=== PATIENT | male | born 1970 | race Caucasian/White ===

== ENCOUNTER 2023-07-16 08:52 | Emergency (ER) | payer MEDICARE, SELFPAY ==
[2023-07-16 08:54] VITALS: BP 168/95; PULSE 80; RESP 18; TEMP 36.6; O2SAT 93; BMI 20.7
[2023-07-16 09:00] VITALS: BP 168/95; PULSE 78; RESP 20; O2SAT 96
--- NOTE | 2023-07-16 09:09 | PC.NURSE ---
Dr. Charlton at [facility] for pt eval
--- NOTE | 2023-07-16 09:17 | HMH.EDGENADL ---
Discharge Plan Disposition Patient Disposition: Home, Self-Care Referrals Follow up/Referrals: Provider,Referral, [Primary Care Provider] - See instructions Activity Restrictions/Add. Instructions Additional Instructions/Restrictions: Call your family doctor to establish care for this visit to the emergency department and schedule follow-up within 48 hours to ensure improvement. If you have any worsening of your condition or any other concerning signs or symptoms, return to the emergency department or your primary care doctor for further evaluation. Be sure to stay plenty hydrated Clinical Impressions Clinical Impression: Acute dehydration, Generalized weakness Instructions Patient Instructions: DI for Muscle Weakness Discharge ED Provider: Jareth Charlton General Adult HPI General Chief complaint: Weakness Stated complaint: POSSIBLE DEHYDRATION Time Seen by Provider: 07/16/23 08:59 Mode of Arrival: Wheelchair Source of Information: Relative Limitations: No Limitations Description of Symptoms (Recalled from ER Triage Doc. by RN): Relative states the patient has been having difficulty walking for 3 days now. States he is walking slow and having to hold onto things to get around. Relative states that he gets like this when he is dehydrated. History of Present Illness HPI narrative: 52-year-old male with history of seizure disorder presenting with weakness. Patient has had 1 episode like this in the past, it was due to dehydration. Patient has been tolerating p.o. intake, although less in the past couple days. Family, caretakers, stated that whenever he gets dehydrated, he requires more assistance including holding hands and support while walking and transferring. Patient usually independent. For the past couple of days, patient has been increasingly dependent on someone to help him ambulate. Patient denies fevers, chills, shortness of breath, sore throat, nausea vomiting, abdominal pain, chest pain, rash, leg swelling, dysuria, hematuria, constipation or diarrhea, or any other complaints at this time. Related Data Allergies Allergy/AdvReac Type Severity Reaction Status Date / Time Penicillins Allergy Verified 07/16/23 09:09 Sulfa (Sulfonamide Allergy Verified 07/16/23 09:09 Antibiotics) tide Allergy Uncoded 07/16/23 09:09 [facility] Disclaimer: The information contained in this section may have been updated after the patient was seen, as this information can be updated by other users. Social History Smoking Status: Never smoker alcohol intake: never current occupational status: unemployed Travel in the last 8 weeks: None ROS Obtained: Yes All systems reviewed & no additional complaints except as documented Physical Exam General General appearance: alert and in no apparent distress Head Head exam: atraumatic and normocephalic Eye Eye exam: Present normal appearance, PERRL and EOMI ENT ENT exam: Present normal oropharynx and mucous membranes dry Neck Neck exam: Present normal inspection, full ROM and trachea midline Respiratory Respiratory exam: Present normal lung sounds bilaterally; Absent respiratory distress, wheezes, stridor, accessory muscle use or prolonged expiratory phase Cardiovascular Cardiovascular exam: Present regular rate and normal rhythm Abdominal Exam Abdominal exam: Present soft; Absent distention, tenderness, guarding, rebound, rigidity or normal bowel sounds Extremities Exam Extremities exam: Absent edema Neurological Exam Neurological exam: Present alert, oriented X3, CN II-XII intact and normal gait; Absent motor sensory deficit Skin Skin exam: Present warm and dry; Absent diaphoresis or erythema Medical Decision Making Medical Records Medical records reviewed: Yes I reviewed the patient's medical records. Carlos Inquiry Pt receiving controlled substance: No Carlos was queried for this patient: No Vital Signs: 07/16/23 08:54 07/16/23 09:00 07/16/23
[2023-07-16 09:26] LABS: Basophils % 0.7 % (0.1-2.0); Eosinophils # 0.1 K/mm3 (0.0-0.4); Hematocrit 43.6 % (42.0-52.0); Lymphocytes # 1.9 K/mm3 (0.7-4.5); Lymphocytes % 33.2 % (10-50); Mean Corpuscular HGB Conc 32.2 g/dL (31.8-35.4); Mean Corpuscular Hemoglobin 21.3 pg (27.0-31.2); Mean Corpuscular Volume 66.4 fl (80-94); Mean Platelet Volume 7.7 fl (7.4-10.4); Monocytes # 0.6 K/mm3 (0.1-1.0); Monocytes % 10.2 % (1.7-9.3); Neutrophils % 53.9 % (37.0-80.0); Platelet Count 147 K/mm3 (142-424); Red Blood Count 6.57 M/mm3 (4.60-6.20); White Blood Count 5.6 K/mm3 (4.8-10.8)
[2023-07-16 09:32] LABS: Chloride 103 mmol/L (98-107); Potassium 3.7 mmoL/L (3.5-5.1); Sodium 140 mmol/L (136-145)
[2023-07-16 09:34] LABS: Blood Urea Nitrogen 17 mg/dl (9-20); Creatinine Clearance Estimated 78 mL/min (50-200); Estimated Glomerular Filt Rate 78 ml/min (>60); GFR (African American) 95 ML/MIN (>60)
[2023-07-16 09:35] LABS: Alanine Aminotransferase 83 U/L (12-78); Albumin Level 4.4 g/dl (3.5-5.0); Albumin/Globulin Ratio 1.3 (1.1-1.8); Alkaline Phosphatase 53 U/L (38-126); Anion Gap 10.7 mEq/L (5-15); Aspartate Amino Transferase 64 U/L (17-59); Bilirubin,Total 0.4 mg/dl (0.2-1.3); Carbon Dioxide 30 mmol/L (22.0-30.0); Globulin 3.4 g/dL (1.3-3.2); Glucose 128 mg/dl (74-100); Total Protein,Serum 7.8 g/dl (6.3-8.2)
[2023-07-16 10:00] VITALS: BP 158/85; PULSE 77; RESP 18; O2SAT 100
--- NOTE | 2023-07-16 10:00 | PC.NURSE ---
Rounded on pt. No needs or complaints voiced from pt or visitors
[2023-07-16 10:30] VITALS: BP 130/81; PULSE 72; RESP 18; O2SAT 97
--- NOTE | 2023-07-16 10:33 | PC.NURSE ---
Dr. Charlton at [facility] to update pt/visitors on results and POC
[2023-07-16 10:44] LABS: Creatine Kinase 67 U/L (55-170)
[2023-07-16 12:19] VITALS: BP 130/81; PULSE 72; RESP 18; TEMP 36.6; O2SAT 97
== END 2023-07-16 12:20 | disposition home or self-care (01) ==
PROVIDERS: Emergency Provider Emergency Medicine
DX: E86.0 Dehydration (principal); R53.1 Weakness
CPT/HCPCS: 80053; 82550; 85025; 96360; 96361; 99284